=== PATIENT | male | born 1985 | race Caucasian/White ===

== ENCOUNTER → 2017-09-08 | Outpatient (CLI) | payer OTHER ==
[2016-03-09 20:18] VITALS: BP 170/94
--- NOTE | 2017-09-08 16:38 | US ---
History: Hypothyroidism, neck pain Study: Ultrasound thyroid Findings: High-resolution linear array ultrasound of the thyroid is performed. The right lobe measure s 3.3 x 1.8 x 2.2 cm. The left measures 2.6 x 1.5 x 2.0 cm. The gland is uniform in echogenicity. Esther ging of the area of interest on the left side of the neck is a mildly enlarged lymph node measuring 1 .6 x 0.6 cm maintaining normal jennifer architecture. In the right side of the neck is a mildly hypoecho ic well-defined area measuring 2.9 x 1.4 cm having the appearance of the submandibular gland. Impression: Normal ultrasound of the thyroid. Minimally enlarged left neck lymph nodes. Reported By:
== END | disposition home or self-care (01) | DRG 552 ==
LOC: RAD 09:28
PROVIDERS: ATTEND Otolaryngology
DX: M54.2 Cervicalgia (principal); E03.8 Other specified hypothyroidism; R59.0 Localized enlarged lymph nodes
CPT/HCPCS: 36415; 76536; 84443